=== PATIENT | female | born 1960 ===

== ENCOUNTER 2018-07-16 10:22 | Emergency (ER) | payer OTHER ==
[2018-07-16 10:23] VITALS: BMI 29.2
[2018-07-16 10:33] VITALS: BP 136/83; PULSE 76; RESP 18; TEMP 98.1; O2SAT 96
--- NOTE | 2018-07-16 10:59 | C.PDOC ---
History Of Present Illness 58 year old female presents to ED with complaint of left hip pain that radiates to the left knee for the past 5 days. Patient states that the pain is worse with walking. Patient has a history of left knee meniscus injury and chronic pain. Patient denies fall, injury, lower back pain, fever, and rash. Time Seen by Provider: 07/16/18 10:38 Chief Complaint (Nursing): Back Pain History Per: Patient History/Exam Limitations: no limitations Onset/Duration Of Symptoms: Days (5) Current Symptoms Are (Timing): Still Present Quality Of Discomfort: "Pain" Previous Symptoms: Chronic Pain Associated Symptoms: denies: New Weakness, New Numbness Exacerbating Factor(s): Other (walking) Past Medical History Reviewed: Historical Data, Nursing Documentation, Vital Signs Vital Signs: Last Vital Signs Temp 98.1 F 07/16/18 10:30 Pulse 76 07/16/18 10:30 Resp 18 07/16/18 10:30 BP 136/83 07/16/18 10:30 Pulse Ox 96 07/16/18 10:30 - Medical History PMH: Arthritis Denies: Depression Surgical History: Cholecystectomy - [facility] Procedures APPLICATION OF SPLINT (10/24/05) ASPIRATION OF BREAST (01/23/05) D & C NEC (01/09/05) DRESSING OF WOUND NEC (03/23/13) INJECT/INFUSE NEC (02/03/13) LOCAL EXCIS BREAST LES (04/30/01) MAGNETIC RESONANCE IMAGING OF BRAIN AND BRAIN STEM (07/27/01) PERCUTAN NEEDLE BIOPSY OF BREAST (04/09/01) SUBTOTAL MASTECTOMY (12/14/99) Family History: States: Unknown Family Hx - Social History Hx Tobacco Use: Yes Hx Alcohol Use: No Hx Substance Use: No - Immunization History Hx Tetanus Toxoid Vaccination: No Hx Influenza Vaccination: No Hx Pneumococcal Vaccination: No Review Of Systems Constitutional: Negative for: Fever, Chills, Weakness Musculoskeletal: Positive for: Hand Pain (left), Other (Left knee pain). Negative for: Back Pain Skin: Negative for: Rash Neurological: Negative for: Weakness, Numbness, Dizziness Physical Exam - Physical Exam Appears: Non-toxic, Other (moderate pain) Skin: Normal Color, Warm, Dry Head: Atraumatic, Normacephalic Neck: Normal ROM, Supple Chest: Symmetrical, No Deformity Cardiovascular: Rhythm Regular, No Murmur Respiratory: No Accessory Muscle Use Gastrointestinal/Abdominal: Soft, No Tenderness Extremity: Capillary Refill (<2 seconds), No Swelling, No Other (erythema, warmth to touch) Extremity: Left: Bony Point Tenderness (hip and left anterior thigh) Pulses: Left Radial: Normal, Right Radial: Normal Neurological/Psych: Oriented x3, Normal Speech, Normal Cognition ED Course And Treatment O2 Sat by Pulse Oximetry: 96 (RA) - Other Rad Hip/Pelvis X-ray X-Ray: Interpreted by Me, Viewed By Me Interpretation: Arthritic changes and calcification of the left femural head. Progress Note: Patient given Flexeril PO and Toradol IM. Hip and Pelvic X-ray ordered for patient. Upon reassessment, patient is resting comfortably, in no distress, and is stable for discharge. Patient is advised to follow up with orthopedics within 1 week. Patient is advised to return to ED if symptoms persist or worsen. Disposition Counseled Patient/Family Regarding: Studies Performed, Diagnosis, Need For Followup, Rx Given - Disposition Referrals: José Lewis III, MD [Staff Provider] - Disposition: HOME/ ROUTINE Disposition Time: 11:50 Condition: STABLE Additional Instructions: FOLLOW UP WITH ORTHOPEDICS WITHIN 1 WEEK USE MEDICATIONS DIRECTED RETURN TO ER IF SYMPTOMS WORSEN Prescriptions: Cyclobenzaprine [Flexeril] 10 mg PO BID PRN #20 tab PRN Reason: Muscle Spasm Lidocaine 5% [Lidoderm] 1 patch TOP DAILY PRN #10 patch PRN Reason: pain Naproxen [Naprosyn] 1 tab PO BID PRN #25 tab PRN Reason: Pain Instructions: Hip Bursitis (DC) Forms: [employer] (Telugu), Work Excuse Print Language: GEORGIAN - Clinical Impression Clinical Impression: Calcific tendinitis, Left hip pain, Bursitis of left hip - Scribe Statement The provider has reviewed the documentation as recorded by the Scribe (Ariane Escobar) All medical record entries made by the Scribe were at my direction and personally dictated by me. I have reviewed the chart and agree that the record accurately reflects my personal performance of the history, physical exam, medical decision making, and the department course for this patient. I have also personally directed, reviewed, and agree with the discharge instructions and disposition.
--- NOTE | 2018-07-16 14:09 | RAD ---
PROCEDURE: Radiographs of the pelvis and bilateral hips HISTORY: LEFT HIP PAIN COMPARISON: None. FINDINGS: BONES: The pelvic ring is intact. There is diffuse bone demineralization. There is no acute displaced fracture or bone destruction. JOINTS: The hip joint spaces are preserved. The sacroiliac joints are normal. There is mild osteitis pubis. SOFT TISSUES: There are discrete faint calcifications lateral to the right greater trochanter. There are dense multilobular calcifications lateral to the left greater trochanter. OTHER FINDINGS: None. IMPRESSION: Dense multilobular calcifications lateral to the left greater trochanter may represent tendon calcifications/trochanteric bursitis. Similar changes to a lesser extent on the right.
== END 2018-07-16 12:22 | disposition home or self-care (01) ==
LOC: C.ER 10:22
DX: M65.28 Calcific tendinitis, other site (principal); M71.552 Other bursitis, not elsewhere classified, left hip; M25.552 Pain in left hip
CPT/HCPCS: 73502; 96372; 99283; J1885